=== PATIENT | male | born 1990 | race Caucasian/White ===

== ENCOUNTER 2019-08-08 00:52 | Emergency (ER) | payer OTHER ==
[~2019-08-08] VITALS: Ht 175.3 cm; Wt 83.9 kg
[2019-08-08 01:02] VITALS: BP 110/72
--- NOTE | 2019-08-08 01:34 | NUR ---
PT IS RELEASED TO [facility] OF [facility] AND MEDICALLY CLEARED FOR BOOKING/INCARCERATION. PT IS IN STABLE CONDITION, NO NOTED DISTRESS. PT IS AMBULATORY W/O ASSIST ON STEADY GAIT.
== END 2019-08-08 01:35 | disposition home or self-care (01) ==
LOC: ER 00:56
DX: Z02.89 Encounter for other administrative examinations (principal)

== ENCOUNTER 2019-08-08 07:05 | Emergency (ER) | payer OTHER ==
[~2019-08-08] VITALS: Ht 175.3 cm; Wt 83.9 kg
--- NOTE | 2019-08-08 07:37 | NUR ---
patient [facility] for ok to book, on room air, denies any pain at this time, patient was here last night and cleared by MD. Will continue to monitor accordingly.
[2019-08-08 07:40] VITALS: BP 153/89
--- NOTE | 2019-08-08 07:40 | NUR ---
patient left in stable condition in custody, medically cleared for ok to book. Denies any pain at this time.
== END 2019-08-08 07:40 ==
LOC: ER 07:06
DX: T50.995A Adverse effect of other drugs, medicaments and biological substances, initial encounter (principal); Y92.89 Other specified places as the place of occurrence of the external cause